=== PATIENT | male | born 1955 | race Caucasian/White ===

== ENCOUNTER 2023-07-25 18:44 | Emergency (ER) | payer OTHER, SELFPAY ==
[2023-07-25 18:47] VITALS: BP 172/76
--- NOTE | 2023-07-25 19:37 | ED.GENMED ---
History of Present Illness
General
Chief Complaint: Skin Surface Trauma
Source: patient
Exam Limitations: none
Time Seen by Provider: 07/25/23 19:15
Nursing documentation reviewed up to this point in time: agreed with
Travel History
Have you had any contact with someone who has COVID-19?: No
Do you have any symptoms of coronavirus? Fever > 100 degrees, chills, cough, shortness of breath, sore throat, loss of taste or smell, muscle aches, or headache?: No
History of Present Illness
History of Present Illness:
Patient is a 67-year-old male presents to the ED for evaluation of laceration to left index finger from hedge tremor 30 minutes prior to arrival. He is not on blood thinners. He is right-hand dominant he denies any other injuries. HE believes his
tetanus is UTD.
Review of Systems
Review of Systems
Allergies reviewed?: Yes
All Other Systems: ROS reviewed and negative except as documented in HPI and ROS
Constitutional: Reports no symptoms; Denies fever
Musculoskeletal: Reports other (left index finger laceration )
Skin: Reports other (see above )
Neurological: Reports no symptoms
Psychiatric: Reports no symptoms
Phy Exam
General Physical Exam
General Presentation: no apparent distress
General age: appears stated age
General Skin: warm and dry
General Habitus: normal
General Mental: alert
General Hydration: appears well hydrated
Neurological Exam
Neurological Exam: alert and oriented x3
Musculoskeletal Exam
Musculoskeletal Exam: other (lue with strong pulses + 2 cm laceration to distal phalynx of left index finger , partial distal lateral nail is avulsed + oozing no bony tenderness full flexion/extension )
Skin Exam
Skin Exam: normal color and warm/dry
Psychiatric Exam
Psychiatric Exam: normal mood/affect
Course
Orders/Labs/Results
Orders:
Orders
07/25/23 20:05
Cephalexin Monohydrate [Keflex] 500 mg PO NOW STA
Vital Signs
Initial and Last Documented VS:
Initial Vital Signs
Temp Pulse Resp BP Pulse Ox
98.6 F 53 20 172/76 97
07/25/23 18:47 07/25/23 18:47 07/25/23 18:47 07/25/23 18:47 07/25/23 18:47
Last Documented Vital Signs
Temp Pulse Resp BP Pulse Ox
98.6 F 53 20 172/76 97
07/25/23 18:47 07/25/23 18:47 07/25/23 18:47 07/25/23 18:47 07/25/23 18:47
Procedures
Laceration Closure
Left Distal Finger:
Status of Wound: clean
Size of Wound in cm: 2
Description of Wound Edges: sharp
Preparation: cleaned with saline
Anesthesia: 1% Lidocaine and Digital-Regional
Revision/Debridement: routine- no revision
Wound exploration: no tendon involvement
Type of Closure: single layer closure
Skin Closure Material: 5-0 nylon
Number of sutures: 4
MDM/Problems Addressed
Differential Diagnosis Includes:
Not limited to laceration
MDM/Problems Addressed:
Patient with laceration to distal index finger repaired as documented. This was from a hedge tremor. No tendon deficit full flexion extension no bony tenderness not the will DC on Keflex for 5 days prophylactically. Patient will call family
doctor to ensure tetanus is up-to-date and if not we will follow-up with family doctor for administration of tetanus. Wound care reviewed.
*Critical Care Note
Total Time (30-74mins, 75-104mins- exclusive of procedures): Not Applicable
ED Attending Note
-
Portions of this chart may have been created with voice recognition software.� Occasional wrong word or��sound alike� substitutions may have occurred due to the inherent limitations of voice recognition software.
Discharge Plan
Departure
Patient Disposition: Home (Routine Discharge)
Date of Disposition: 07/25/23
Time of Disposition: 20:08
Patient with high blood pressure during this ER visit?: Yes
Covid-19: Not Applicable
Discharge Problem:
Finger laceration
Instructions: Laceration Repair With Stitches (DC), BLOOD PRESSURE
Prescriptions:
New
cephalexin 500 mg capsule
500 mg PO Q6H Qty: 20 0RF
Referrals:
Surya Mei PA-C [Family Provider] -
Activity Restrictions/Additional Instructions:
Keep wound clean and dry for 24 hours after 24 hours wash twice a day with soap and water pat dry apply small layer of antibiotic ointment to the area. See family doctor 2 days for wound check as needed and sutures are to be removed in 10 to 12
days. Antibiotic as discussed for the next 5 days.this was sent to your pharmacy. Take as directed. Return if any signs of infection.
Interventions
Interventions:
*Risk Screen - Suicide Last Done: 07/25/23 18:47
*General Assessment Last Done: 07/25/23 18:47
*Neglect/Abuse Screening Last Done: 07/25/23 18:47
ED- Fall Risk Assessment Last Done: 07/25/23 18:47
*ED COVID-19 Vaccine History Last Done: 07/25/23 18:47
ED-Skin Assessment Last Done: 07/25/23 19:19
Discharge Date and Time
Print Language: DANISH
[2023-07-25 20:08] VITALS: BMI 28.8
[2023-07-25] MEDS: KEFLEX 500 MG PO (20:31)
== END 2023-07-25 20:37 | disposition home or self-care (01) ==
LOC: EMR 18:44
PROVIDERS: EMERGENCY PHYSICIAN Emergency Medicine; FAMILY PHYSICIAN Physician Assistant Medical
DX: S61.211A Laceration without foreign body of left index finger without damage to nail, initial encounter (principal); W29.3XXA Contact with powered garden and outdoor hand tools and machinery, initial encounter; R03.0 Elevated blood-pressure reading, without diagnosis of hypertension
CPT/HCPCS: 99283; 12001

== ENCOUNTER 2024-04-21 22:18 | Inpatient (IN) | payer OTHER, SELFPAY ==
[2024-04-21 13:32] VITALS: BP 158/104
[2024-04-21 13:44] LABS: % Basophils 0.2 % (0-2); % Eosinophils 0.9 % (0-6); % Immature Granulocytes 0.4 % (0-0.5); % Lymphocytes 11.6 % (20.5-51.1); % Monocytes 8.9 % (1.7-9.3); Absolute Eosinophils 0.1 10^3/uL (0-0.7); Absolute Immature Granulocytes 0.1 10^3/uL (0-0.05); Absolute Lymphocytes 1.9 10^3/uL (1.2-3.4); Absolute Monocytes 1.4 10^3/uL (0.1-0.6); Absolute Neutrophils 12.6 10^3/uL (1.4-6.5); Hematocrit 47.5 % (39.0-52.0); Mean Corp Hgb Conc. 35.8 g/dL (33.0-37.0); Mean Corpuscular Hgb 32.2 pg (27.0-31.0); Mean Platelet Volume 8.6 fL (7.4-10.4); Nucleated Red Blood Cells % 0 % (-); Platelet Count 215 10^3/uL (130-400); Red Blood Cell Count 5.28 10^6/uL (4.70-6.10); Red Cell Dist. Width 12.5 % (11.5-14.5); White Blood Cell Count 16.2 10^3/uL (4.8-10.8)
[2024-04-21 14:16] LABS: ALT (SGPT) 13 U/L (0-50); AST (SGOT) 16 U/L (17-59); Alkaline Phosphatase 74 U/L (38-126); Blood Urea Nitrogen 16 mg/dl (9-20); Calcium 9.9 mg/dl (8.4-10.2); Carbon Dioxide 25 mmol/L (22-30); Chloride 100 mmol/L (98-107); Glucose 112 mg/dl (70-99); Lipase 1386 U/L (23-300); Potassium 4.4 mmol/L (3.5-5.1); Sodium 133 mmol/L (135-145); Total Bilirubin 1.1 mg/dl (0.2-1.3); Total Protein 7.3 g/dl (6.3-8.2); eGFR > 60.00
[2024-04-21] MEDS: LR 1000 IV (14:39)
--- NOTE | 2024-04-21 14:48 | ED.GENMED ---
History of Present Illness
General
Chief Complaint: Abdominal Pain
Source: patient and spouse
Exam Limitations: none
Time Seen by Provider: 04/21/24 14:23
Nursing documentation reviewed up to this point in time: agreed with
History of Present Illness
History of Present Illness:
Patient presents ED secondary to persistent abdominal pain over the past 3 days. Abdominal pain described as diffuse, crampy, without any alleviating or exacerbate factors. Patient also reports feeling tired with decreased appetite since onset of
pain. Denies nausea, vomiting, or diarrhea. Denies recent change in medications or diet. Denies recent travel. Denies sick contact. Denies previous history of similar symptoms. Patient does report smoking, and drinking alcohol on social
occasions. Denies previous history of similar symptoms. Patient has had colonoscopy, most recently 3 years ago, without any significant findings.
Review of Systems
Review of Systems
Allergies reviewed?: Yes
All Other Systems: ROS reviewed and negative except as documented in HPI and ROS
Constitutional: Reports no symptoms; Denies fever
Respiratory: Reports no symptoms
Cardiac: Reports no symptoms
ABD/GI: Reports abdominal pain; Denies vomiting or diarrhea
Musculoskeletal: Reports no symptoms
Skin: Reports no symptoms
Neurological: Reports no symptoms
Phy Exam
Physical Exam
Physical Exam:
Physical Exam
General: no apparent distress, not acutely ill. afebrile
Head: nc/at. eomi
Neck: supple. normal range of motion.
Heart: s1/s2 regular rate and rhythm, no murmur.
Lungs: no acute respiratory distress. clear bilaterally
Abdomen: normal bowel sounds. mild RUQ tenderness to palpation. no distention
Neuro: alert and oriented. no focal neurological deficits
Skin: no rash
Psychiatric: well kept. interactive and cooperative
Extremities: no edema. no calf tenderness.
Course
Orders/Labs/Results
Orders:
Orders
04/21/24 13:38
CMP [Comprehensive Metabolic Panel] Urgent
Complete Blood Count/With Diff Urgent
Lipase Urgent
Magnesium Urgent
Comment: ADD ON
04/21/24 14:33
US Abdomen Complete/Upper Urgent
Comment:
Reason For Exam: RUQ pain
04/21/24 14:34
Add On- LAB Urgent
Tests Added?: magnesium
Lactated Ringers [Lr] 1,000 ml IV BOLUS
04/21/24 16:07
Iohexol [Omnipaque] See Protocol PO NOW STA
04/21/24 16:08
CT Abd/pel W Iv And Oral Contr Urgent
Comment:
Reason For Exam: abdominal pain w elevated lipase
04/21/24 21:15
Lactated Ringers [Lr] 500 ml IV 100 mls/hr
04/21/24 21:48
Admit/Transfer Patient As Directed
Co-Sign Provider:
Level of Care: Inpatient admission
Assign to:: Medical/Surgical
Physician / Group: Paul Schafer
Diagnosis: Acute pancreatitis
Reason for Hospitalization: Acute pancreatitis
Expected length of stay greater than two midnights?: Yes
ELOS- Estimated Length of Stay in days: 3
I certify the patient meets the requirements for IP care: Yes
PRN Pain Medication Management As Directed
May give lesser potent ordered pain med per pt: Yes
preference::
Protocol:: Medication orders for pain may be administered in a
manner that supports deferring to patient preference
when the pt is:
- Requesting an ordered lesser potent pain medication.
Least to most potent pain medications are defined
as: acetaminophen < NSAID < tramadol < opioids
(morphine, oxycodone, hydromorphone).
- Requesting a lesser dose of the same medication IF
ORDERED.
- Requesting a less intrusive route of administration
if both routes are prescribed by the provider (PO <
IV).
04/21/24 21:49
Code Status As Directed
Resuscitation Status: Full Code
04/21/24 21:56
EKG [Electrocardiogram (*1)] Stat
Reason for Study: Abdominal Pain
Abnormal Lab Results
04/21/24
13:38
WBC 16.2 H 10^3/uL
(4.8-10.8)
MCH 32.2 H pg
(27.0-31.0)
Abs Immat Gran (auto) 0.1 H 10^3/uL
(0-0.05)
Absolute Neuts (auto) 12.6 H 10^3/uL
(1.4-6.5)
Absolute Monos (auto) 1.4 H 10^3/uL
(0.1-0.6)
Neutrophils % 78.0 H %
(42.2-75.2)
Lymphocytes % 11.6 L %
(20.5-51.1)
Sodium 133 L mmol/L
(135-145)
Glucose 112 H mg/dl
(70-99)
AST 16 L U/L
(17-59)
Lipase 1386 H* U/L
(23-300)
04/21/24 13:38
04/21/24 13:38
Vital Signs
Initial and Last Documented VS:
Initial Vital Signs
Temp Pulse Resp BP Pulse Ox
98.4 F 70 18 158/104 96
04/21/24 13:32 04/21/24 13:32 04/21/24 13:32 04/21/24 13:32 04/21/24 13:32
Last Documented Vital Signs
Temp Pulse Resp BP Pulse Ox
98.4 F 63 18 168/74 93
04/21/24 13:32 04/21/24 20:00 04/21/24 20:00 04/21/24 20:00 04/21/24 20:00
MDM/Problems Addressed
MDM/Problems Addressed:
History, exam, blood work, along with CT abdomen/pelvis consistent with acute pancreatitis. Discussed with on-call GI, . Patient will be admitted for continued IV hydration via lactated ringer.
*Critical Care Note
Total Time (30-74mins, 75-104mins- exclusive of procedures): Not Applicable
ED Attending Note
-
Portions of this chart may have been created with voice recognition software.� Occasional wrong word or��sound alike� substitutions may have occurred due to the inherent limitations of voice recognition software.
Discharge Plan
Departure
Patient Disposition: Admit
Date of Disposition: 04/21/24
Time of Disposition: 21:04
Admit to: Med/Surg
Presentation/result/management discussed w/ accepting MD/DO: Hospitalist
Discharge Problem:
Pancreatitis
Interventions
Interventions:
*Risk Screen - Suicide Last Done: 04/21/24 13:32
*General Assessment Last Done: 04/21/24 13:32
*Neglect/Abuse Screening Last Done: 04/21/24 18:00
[facility] Assessment Last Done: 04/21/24 16:42
[2024-04-21] MEDS: OMNIPAQUE 50 ML PO (16:12)
[2024-04-21 19:00] VITALS: BP 174/74
[2024-04-21 20:00] VITALS: BP 168/74
--- NOTE | 2024-04-21 21:19 | HPS.HSE ---
Addendum entered and electronically signed by Paul Schafer DO 04/21/24 22:28:
Patient seen and examined independently. Agree with findings and plan as set forth by DON Holcomb.
Patient is a 68y M with PMH significant for hypertension and dyslipidemia who presents to ED complaining of several days of abdominal pain. Patient reports pain x 3 days. It was quite severe yesterday. he has been staying in bed mostly and has
not eaten / drank much. No N/V. No fevers / chills. No prior history of similar symptoms. No significant alcohol use.
Ass:
Acute Pancreatitis
Leukocytosis - Likely reactive
Benign Hypertension
Dyslipidemia
Plan:
Admit for further evaluation and treatment.
Mild symptoms and likely partially treated by his own limited PO intake x several days.
NPO, IVFs, pain control, etc.
Imaging in the ED with evidence of pancreatic inflammation, but no gallstones, etc.
GI evaluation for additional recommendations.
Follow for clinical improvement.
Original Note:
Family Physician
-
Family Physician: Mundo Foster
Chief Complaint
-
abdominal pain
History of Present Illness
Patient is a 68-year-old male with past medical history significant for benign hypertension and hyperlipidemia who presented to [facility] ED for evaluation of abdominal pain for the past 3 days. Patient reports he had intermittent diffuse
abdominal on Monday afternoon and evening, Monday pain was consistent and he slept most of the day and continued into today without relief. Patient reports pain was diffuse, crampy and denies any alleviating or exacerbating factors. Associated
anorexia since symptom onset. Patient denies any fevers, chills, nausea, vomiting or diarrhea.
Medical History
Past Medical History
Past Medical History: Reports Other
Additional Past Medical History:
benign hypertension
hyperlipidemia
Hx [place]
Past Surgical History: Reports Other
Additional Past Surgical History:
broken ankle repair (left)
cardiac cath
Social History
Tobacco: Smoker (0.5packs per day for 50 years, 25 pack year history )
Alcohol: Occasional
Drug: None
Personal:
Living: With Family
Employment: Retired
Family History
Family History: Not pertinent
Allergies / Home Medications
Allergies reflects when Allergies were last updated in [employer]
Home Medications with original date entered in [employer]
Allergy/Medication List:
Allergies
Allergy/AdvReac Type Severity Reaction Status Date / Time
No Known Allergies Allergy Verified 04/21/24 13:35
Home Medications
amlodipine 5 mg tablet 5 mg PO HS 04/21/24
aspirin 81 mg tablet,delayed release 81 mg PO HS 04/21/24
cyanocobalamin (vitamin B-12) 1,000 mcg tablet 1,000 mcg PO HS 04/21/24
lisinopril 10 mg tablet 20 mg PO HS 04/21/24
nebivolol 10 mg tablet 10 mg PO HS 04/21/24
niacin 500 mg tablet,extended release 500 mg PO HS 04/21/24
simvastatin 40 mg tablet 40 mg PO HS 04/21/24
Review of Systems
-
History Source: Patient
Constitutional: Reports No Symptoms
EENT: Reports No Symptoms
Respiratory: Reports No Symptoms
Cardiac: Reports No Symptoms
Abdomen/GI: Reports Abdominal Pain and Anorexia
: Reports No Symptoms
Musculoskeletal: Reports No Symptoms
Skin: Reports No Symptoms
Neurological: Reports No Symptoms
Endocrine: Reports No Symptoms
Hematologic/Lymphatic: Reports No Symptoms
Psych: Reports No Symptoms
Physical Exam
Vital Signs
Vital Signs
Temp Pulse Resp BP Pulse Ox
98.4 F 63 18 168/74 93
04/21/24 13:32 04/21/24 20:00 04/21/24 20:00 04/21/24 20:00 04/21/24 20:00
Physical Exam
General: Well Developed, Well Nourished, No Apparent Distress, Comfortable, Conversant and Obese
HEENT: NormoCephalic, Moist mucous membranes, Atraumatic, [place] Conjunctivae, Nose Appears Normal and Ears Appear Normal
Respiratory: Clear and Non Labored Respirations; No Wheezes, Rales, Rhonchi or Crackles
Cardiac: S1/S2 and Regular Rhythm; No Murmur, Rub or Gallop
Breast: Deferred by me
GI: Soft, Non Tender, Non Distended and Normal Bowel Sounds (hypoactive ); No Organomegaly
Rectal: Deferred by Provider
Genito-urinary: Deferred by me
Musculoskeletal: No Clubbing, No Cyanosis and No Edema
Skin: Warm and IV/Catheter Site; No Rash
Neuro: Awake, Alert, AO x 3 and Nonfocal/grossly intact
Psych: Calm and Intact Judgment/Insight
Laboratory Results
-
04/21/24 13:38
04/21/24 13:38
Laboratory Results
Total Bilirubin 1.1 mg/dl (0.2-1.3) 04/21/24 13:38
AST 16 U/L (17-59) L 04/21/24 13:38
ALT 13 U/L (0-50) 04/21/24 13:38
Alkaline Phosphatase 74 U/L (38-126) 04/21/24 13:38
Lipase 1386 U/L (23-300) H* 04/21/24 13:38
Data Reviewed
-
CT Scan: Report Reviewed by me (Abd/Pel: Acute uncomplicated interstitial edematous pancreatitis.)
Ultrasound: Report Reviewed by me (Abd: Unremarkable abdominal ultrasound, as detailed above. )
Lab Data: Labs Reviewed by me (WBC 16.2, Neut 78.0, Lipase 1386)
Impression/Plan
-
IMPRESSION/PLAN:
#Acute pancreatitis
WBC 16.2, Neut 78.0, Lipase 1386
Abd US: Unremarkable abdominal ultrasound, as detailed above.
Abd/Pel CT: Acute uncomplicated interstitial edematous pancreatitis.
- Admit to med/surg
- Consult GI
- IVF
#benign hypertension
- continue amlodipine, lisinopril and nebivolol
#hyperlipidemia
- continue niacin and simvastatin
#nicotine dependency
25 pack year history
- encourage cessation
Code status: full code
DVT prophylaxis: Lovenox Sq
[2024-04-21] MEDS: LR 500 IV (21:59)
[2024-04-21 23:27] VITALS: BMI 27.4
[2024-04-21 23:30] VITALS: BP 170/81
--- NOTE | 2024-04-21 23:49 | PTCARENOTE ---
6373- Received patient from ED via stretcher; Medsurg order. Afebrile, HR 68, RR 18, BP 170/81, pox 97% room air. Pain controlled. Pt ambulated w/o issues. IVF- LR@ 100ml/hr infusing through #20RFA IV. PMH and medications reviewed by this RN and
patient. Plan of care discussed. Patient oriented to room. Call gan within reach.
[2024-04-21] MEDS: ASPIR LOW (ENTERIC COATED) 81 MG PO (23:56)
[2024-04-21] MEDS: ZESTRIL 20 MG PO (23:56)
[2024-04-21] MEDS: VITAMIN B-12 1000 MCG PO (23:57)
[2024-04-21] MEDS: BYSTOLIC 10 MG PO (23:58)
[2024-04-22 01:16] VITALS: BP 164/71
[2024-04-22] MEDS: LR IV ×3 (03:59→12:25)
[2024-04-22] MEDS: LR 1000 IV ×2 (04:05→15:24)
--- NOTE | 2024-04-22 08:02 | W.PN.HOSP.TC ---
Today's Communication/Plan
-
Discharge today
Assessment / Plan
Assessment / Plan
Physical Exam
General: Not in acute distress
HEENT: Normocephalic, Moist mucous membranes, Atraumatic
Respiratory: Clear to Auscultation Bilaterally
Cardiac: S1/S2 and Regular Rate and Rhythm
GI: Soft, Minimally Tender, Non Distended and Normal Bowel Sounds
Musculoskeletal: No Cyanosis and No Edema
Skin: Warm. Dry.
Neuro: Awake, Alert, AO x 3 and Nonfocal/grossly intact
Psych: Calm and Intact Judgment/Insight
Assessment/Plan
68-year-old male with past medical history significant for benign hypertension and hyperlipidemia who presented to [facility] ED for evaluation of abdominal pain for about 3 days prior to arrival. Patient reports he had intermittent diffuse
abdominal on Monday afternoon and evening, Monday pain was consistent and he slept most of the day and continued into today without relief. Patient reports pain was diffuse, crampy and denies any alleviating or exacerbating factors. Associated
anorexia since symptom onset. Patient denies any fevers, chills, nausea, vomiting or diarrhea. No significant alcohol use.
#Acute pancreatitis -- improving may be from alcohol vs. med (recent increase in Lisinopril outpatient)
WBC 16.2, Neut 78.0, Lipase 1386
Abd US: Unremarkable abdominal ultrasound, as detailed above.
Abd/Pel CT: Acute uncomplicated interstitial edematous pancreatitis.
- Triglycerides okay
- Appreciate GI evaluation and recommendations
- Consider changing ACEI if pancreatitis recurs or doesn't further resolve
- I communicated with chief librarian branch Dr. Mendez today, and from her standpoint, okay to discharge patient today
RBBB
History of NSTEMI 05/2010 and cardiac cath at that time showed nonobstructive CAD
-Patient son Rogerio Biswas (work in cardiology research/cardiology nurse) requested cardiology consult and further evaluation; he reported that the RBBB is new, but after further research, it appears RBBB is now new. Appreciate cardiology.
-Echo today was unremarkable with preserved EF
-Follow-up with outpatient body line finisher
#Leukocytosis - Likely reactive
#benign hypertension
- continue amlodipine, lisinopril and nebivolol
#hyperlipidemia
- continue niacin and simvastatin
#nicotine dependency
25 pack year history
- encourage cessation
Code status: full code
DVT prophylaxis: Lovenox Sq
More than 30 minutes spent in discharge including
Final examination of the patient
Summarizing hospital stay
Instructions for continuing care to all relevant caregivers
Preparation of discharge records, prescriptions, and referral forms
Total time spent (in minutes): 38
Anticipated Discharge: Today
Subjective/Interval History
-
Date of Service: April 22, 2024
Patient was seen and examined. He reported feeling better, abdominal pain is much better per him. He denied any chest pain, dizziness or shortness of breath.
Objective Data
-
Labs:
Laboratory Results
04/22/24
07:33
WBC Pending
Hgb Pending
Hct Pending
Plt Count Pending
Sodium Pending
Potassium Pending
Chloride Pending
Carbon Dioxide Pending
BUN Pending
Creatinine Pending
Glucose Pending
Calcium Pending
Total Bilirubin Pending
AST Pending
ALT Pending
Alkaline Phosphatase Pending
Vital Signs:
Vital Signs
Temp Pulse Resp BP Pulse Ox
97.8 F 65 18 164/71 97
04/22/24 01:16 04/22/24 01:16 04/22/24 01:16 04/22/24 01:16 04/22/24 01:16
I&O
04/21/24 04/22/24 04/23/24
06:59 06:59 06:59
Intake Total 900 / 900
Balance 900 / 900
[2024-04-22 08:03] VITALS: BP 156/72
[2024-04-22 08:27] LABS: Hematocrit 45.3 % (39.0-52.0); Hemoglobin 15.9 g/dL (13.0-18.0); Mean Corp Hgb Conc. 35.1 g/dL (33.0-37.0); Mean Corpuscular Volume 91.1 fL (80.0-94.0); Mean Platelet Volume 9.1 fL (7.4-10.4); Platelet Count 234 10^3/uL (130-400); Red Blood Cell Count 4.97 10^6/uL (4.70-6.10); Red Cell Dist. Width 12.6 % (11.5-14.5); White Blood Cell Count 14.9 10^3/uL (4.8-10.8)
[2024-04-22 08:50] LABS: ALT (SGPT) 11 U/L (0-50); AST (SGOT) 16 U/L (17-59); Albumin 3.5 g/dl (3.5-5.0); Alkaline Phosphatase 81 U/L (38-126); Blood Urea Nitrogen 14 mg/dl (9-20); Calcium 9.5 mg/dl (8.4-10.2); Carbon Dioxide 23 mmol/L (22-30); Chloride 102 mmol/L (98-107); Estimated Creatinine Clearance 116 ml/min; Glucose 70 mg/dl (70-99); HDL Cholesterol 44 mg/dl; LDL Cholesterol, Calculated 51 mg/dl; Lipase 785 U/L (23-300); Potassium 4.3 mmol/L (3.5-5.1); Sodium 132 mmol/L (135-145); Total Bilirubin 1.1 mg/dl (0.2-1.3); Total Cholesterol 107 mg/dl (50-199); Total Protein 6.6 g/dl (6.3-8.2); Triglyceride 61 mg/dl (10-149); Triglycerides 61 mg/dl (10-149); Very Low Density Lipoprotein 12 mg/dl (0-30); eGFR > 60.00
--- NOTE | 2024-04-22 11:04 | CM ---
Patient seen at bedside. Patient states that he lives with his and family in a split level home. Patient stated that he uses the [facility] and his PCP is Dr. sonam Lancaster. Patient uses the [facility] in [place]. Patient is
independent of all adl's and IADL's. Patient plan is home with no needs when medically appropriate. CM will continue to follow for discharge planning needs.
Plan; discharge with no needs.
--- NOTE | 2024-04-22 13:07 | CON.GI ---
Addendum entered and electronically signed by Jhon Mendez MD 04/22/24 15:12:
I personally performed a history and physical exam of the patient and discussed management with the resident. I reviewed the resident's note and agree with the documented findings and plan of care HPI/CC.
Pt is A 68-year-old man with a history of hyperlipidemia and [place] back a decade ago who states that he was away at [place] last week and started developing severe abdominal pain. He states it was worse on Monday and then started leading up on
Monday. He came home and then decided since it had not resolved to come to the emergency room on Monday. In the emergency room he had an elevated lipase and white blood count. He did have some mild pain but not as severe as initially. He
denies having abnormal triglycerides. He does drink alcohol socially but states he did not drink prior to admission. He did have a CAT scan and ultrasound which were essentially unremarkable. This morning he feels better. he did recently
increase his ACEI dose 3 weeks ago. No other new meds
abd: soft, mild tenderness
lipase with further decrease to 785
impression:
pancreatitis improving may be based on alcohol vs. med (increase in ACEI)
plan:
check triglycerides, IGG4
alcohol abstinence
consider changing ACEI if pancreatitis recurs or doesn't further resolve
clear liquids and advance as tolerated
Original Note:
Consultation
-
Date/Time Consultation Requested: 04/21/24
Date/Time Consultation Performed: 04/22/24
Requesting Provider: Marbella OCHOA
Performing Provider: , Richie Álvarez
Reason for Consultation: Adominal Pain- Acute Pancreatitis
Medical History
Chief Complaint / HPI
Chief Complaint: Abdomina Pain
History of Present Illness:
This is a 68 year old male patient with PMH of HTN and hyperlipidemia who presented to for concerns of abdominal pain. He states that he recently gone to the beach this past weekend and had abdominal pain starting on Monday night. He describes
the pain as continuous, non radiating and generalized. He continued to have pain into Monday. The pain mildly decreased by Monday morning when he was able to drive himself back home. He denies any fever,chills,nausea or vomiting. He had normal
bowel movements up until Monday when his pain started and he was unable to eat much.
He has never had abdominal pain episodes like this before and never has experienced gallstones. He states he is a social drinker and drinks about 1-2 drinks a week.
Past Medical History
Past Medical History: HTN, Hypercholesterolemia and [place] (hx of [place])
Past Surgical History: Other (broken ankle repair (left), cardiac cath)
Social History
Tobacco: Smoker
Alcohol: Occasional (1-2 drinks a week)
Drug: None
Personal:
Living: With Family
Family History
Family History: Reviewed & Not Pertinent
Allergies / Home Medications
Allergy/AdvReac Type Severity Reaction Status Date / Time
No Known Allergies Allergy Verified 04/21/24 13:35
�Medication �Instructions �Recorded
amlodipine 5 mg tablet 5 mg PO HS 04/21/24
aspirin 81 mg tablet,delayed 81 mg PO HS 04/21/24
release
cyanocobalamin (vitamin B-12) 1,000 mcg PO HS 04/21/24
1,000 mcg tablet
lisinopril 10 mg tablet 20 mg PO HS 04/21/24
nebivolol 10 mg tablet 10 mg PO HS 04/21/24
niacin 500 mg tablet,extended 500 mg PO HS 04/21/24
release
simvastatin 40 mg tablet 40 mg PO HS 04/21/24
Review of Systems
-
All other systems: A 12 pt ROS was Negative except as stated above in HPI
Vital Signs
Temp Pulse Resp BP Pulse Ox
99.5 F 68 18 156/72 94
04/22/24 08:03 04/22/24 08:03 04/22/24 08:03 04/22/24 08:03 04/22/24 08:03
Physical Exam
Exam
General: No Apparent Distress
HEENT: Normocephalic and Moist Mucous Membranes
Respiratory: Clear
Cardiac: S1/S2 and Regular Rhythm
GI: Soft, Non Tender and Non Distended
Musculoskeletal: No Cyanosis and No Edema
Skin: Warm and Dry
Neuro: Nonfocal/Grossly Intact
Results
WBC 14.9 10^3/uL (4.8-10.8) H 04/22/24 07:33
Hgb 15.9 g/dL (13.0-18.0) 04/22/24 07:33
Hct 45.3 % (39.0-52.0) 04/22/24 07:33
MCV 91.1 fL (80.0-94.0) 04/22/24 07:33
Plt Count 234 10^3/uL (130-400) 04/22/24 07:33
Absolute Neuts (auto) 12.6 10^3/uL (1.4-6.5) H 04/21/24 13:38
Sodium 132 mmol/L (135-145) L 04/22/24 07:33
Potassium 4.3 mmol/L (3.5-5.1) 04/22/24 07:33
Chloride 102 mmol/L (98-107) 04/22/24 07:33
Carbon Dioxide 23 mmol/L (22-30) 04/22/24 07:33
BUN 14 mg/dl (9-20) 04/22/24 07:33
Creatinine 0.7 mg/dL (0.7-1.3) 04/22/24 07:33
Calcium 9.5 mg/dl (8.4-10.2) 04/22/24 07:33
Total Bilirubin 1.1 mg/dl (0.2-1.3) 04/22/24 07:33
AST 16 U/L (17-59) L 04/22/24 07:33
ALT 11 U/L (0-50) 04/22/24 07:33
Alkaline Phosphatase 81 U/L (38-126) 04/22/24 07:33
Lipase 785 U/L (23-300) H 04/22/24 07:33
Diagnostic Image Results:
Abd/pelvic CT with oral and IV contrast 04/21/24: Acute uncomplicated interstitial edematous pancreatitis.
Prior GI Procedures:
EGD: n/a
Colonoscopy: n/a
Assessment / Plan
-
This is a 68 year old male patient with PMH of HTN and hyperlipidemia who presented to for concerns of abdominal pain. He states that he recently gone to the beach this past weekend and had abdominal pain starting on Monday night. He describes
the pain as continuous, non radiating and generalized. He continued to have pain into Monday. The pain mildly decreased by Monday morning when he was able to drive himself back home. He denies any fever,chills,nausea or vomiting. He had normal
bowel movements up until Monday when his pain started and he was unable to eat much.
He has never had abdominal pain episodes like this before and never has experienced gallstones. He states he is a social drinker and drinks about 1-2 drinks a week.
Impression/Assessment:
Acute Pancreatitis
HTN
Hyperlipidemia
Plan:
-Patient was changed to clear liquid diet today
-Lipase downtrending to 785, initially 1386 yesterday
-Add on lipid panel for possible hypertriglyceridemia
-
-
Thank you for consultation and allowing me to participate in the patient's care. Please call the communication coordinator GI physician during the after hours with any questions or concerns.
--- NOTE | 2024-04-22 14:42 | CON.CAR ---
Addendum entered and electronically signed by Nereyda Allen PA-C 04/23/24 08:14:
Patient with h/o bifascicular block which in his case are a combination of RBBB and LAFB. RBBB seen on ECG this admission.
Addendum entered and electronically signed by Moy Murrell DO 04/22/24 16:29:
I saw and examined the patient.
The Rag Sorter's note was reviewed and I agree with the note.
Comment:
Plan:
Consulted for RBBB, not new as per records
Recent PET stress with normal perfusion Nov 2023.
Echo today was unremarkable with preserved EF.
Pt to follow up with his outside television installer helper, Dr Rogers [facility]
Findings reviewed with family.
Please recall if needed.
Original Note:
Consultation
Consultation Request
Date/Time Consultation Requested: 04/22/24
Date/Time Consultation Performed: 04/22/24
Requesting Provider: Dr. Kim
Performing Provider: Dr. Murrell
Reason for Consultation: Posisble new RBBB
Medical History
-
History of Present Illness:
Patient came to ER yesterday with complaints of abdominal pain for 3 days was admitted with pancreatitis, cardiology is now consulted for a new RBBB that the family is concerned may be a sign of a change in known CAD. Patient follows with "Jony"Sue for cardiology at [facility] and previously had an NSTEMI 05/2010 and cardiac cath at that time showed nonobstructive CAD and no intervention was performed, details above. Since then patient has continued to follow-up with Dr. Rogers in the
office and most recently had a cardiac PET test on 11/27/2023 that showed normal perfusion and no evidence of prior infarction. Patient had 3 days worth of abdominal pain and came to ER that is now admitted with pancreatitis. On ECG there was
RBBB and the patient's family, including his son who is a rn cardiac cath, is concerned but this may be new because in the patient's portal he lists his ECG is being normal. No complaints of chest pain.
PMH:
cRBBB
LAFB
Sinus bradycardia
CAD
h/o NSTEMI, managed medically 05/2010
LM normal, 60% mid LAD, normal Circ, 30% prox RCA by cardiac cath 05/2010
HTN
LV enlarged by cardiac PET at [facility] 11/27/2023
Past Medical History
Past Medical History: Other (in HPI)
Past Surgical History: Orthopedic
Social History
Tobacco: Former Smoker (quit in 2010)
Alcohol: Occasional
Drug: None
Personal:
Living: With Family
Family History
Family History: CAD and Hypertension
Allergies / Home Medications
Allergy/AdvReac Type Severity Reaction Status Date / Time
No Known Allergies Allergy Verified 04/21/24 13:35
�Medication �Instructions �Recorded �Confirmed �Type
amlodipine 5 mg tablet 5 mg PO HS 04/21/24 04/21/24 History
aspirin 81 mg tablet,delayed 81 mg PO HS 04/21/24 04/21/24 History
release
cyanocobalamin (vitamin B-12) 1,000 mcg PO HS 04/21/24 04/21/24 History
1,000 mcg tablet
lisinopril 10 mg tablet 20 mg PO HS 04/21/24 04/21/24 History
nebivolol 10 mg tablet 10 mg PO HS 04/21/24 04/21/24 History
niacin 500 mg tablet,extended 500 mg PO HS 04/21/24 04/21/24 History
release
simvastatin 40 mg tablet 40 mg PO HS 04/21/24 04/21/24 History
Review of Systems
-
History Source: Patient and Family ( bedside who also called son, Rogerio, and we talked all together using speakerphone)
All other systems: Negative unless noted
Physical Exam
Vital Signs
Temp Pulse Resp BP Pulse Ox
99.5 F 68 18 156/72 94
04/22/24 08:03 04/22/24 08:03 04/22/24 08:03 04/22/24 08:03 04/22/24 08:03
GEN: NAD. AAOx3
HEENT: EOMI, MMM
LUNGS: RA. No audible wheeze
CV: ECG with NSR and RBBB. Reg, S1/S2, no murmur
ABD: soft, BS+, NT, ND
EXT: No clubbing, cyanosis, lesions or edema B/L
NEURO: Gross non-focal
SKIN: Warm, dry and pink. No rash
Lab Results
04/22/24 07:33
04/22/24 07:33
Impression / Plan
-
PCP: Em Singh NP
Card: Dr. Rogers at [facility] [phone]
Impression:
Admitted with abdominal pain and pancreatitis 04/21/24
Acute pancreatitis
cRBBB
LAFB
Sinus bradycardia
CAD
h/o NSTEMI, managed medically 05/2010
LM normal, 60% mid LAD, normal Circ, 30% prox RCA by cardiac cath 05/2010
HTN
LV enlarged by cardiac PET at [facility] 11/27/2023, seen again on echo at 04/22/2024
Echo 05/2010: AMS study, EF 60 to 65%
Echo 04/22/2024: LV is mildly dilated, normal wall thickness and systolic function with EF 65 to 70%, no WMA, no significant valve disease
Cardiac perfusion PET stress test 11/27/2023: AMS study, normal perfusion, no scintigraphic evidence of reversible ischemia or prior infarction, LV function normal, LV size enlarged, resting ECG with RBBB and LAFB
Plan:
-Patient came to ER yesterday with complaints of abdominal pain for 3 days was admitted with pancreatitis, cardiology is now consulted for a new RBBB that the family is concerned may be a sign of a change in known CAD. Patient follows with "Jony"Sue for cardiology at [facility] and previously had an NSTEMI 05/2010 and cardiac cath at that time showed nonobstructive CAD and no intervention was performed, details above. Since then patient has continued to follow-up with Dr. Rogers in the
office and most recently had a cardiac PET test on 11/27/2023 that showed normal perfusion and no evidence of prior infarction. Patient had 3 days worth of abdominal pain and came to ER that is now admitted with pancreatitis. On ECG there was
RBBB and the patient's family, including his son who is a rn cardiac cath, is concerned but this may be new because in the patient's portal he lists his ECG is being normal. No complaints of chest pain.
-ECG reviewed by me shows SR and RBBB.
-Called patient's primary television installer helper to obtain records. Patient prefers to be hospitalized at because his daughter works here and will continue to see his [facility] providers as an outpatient.
-Reviewed records I retrieved from [facility] and patient has a chronic RBBB and LAFB. Talked with patient's in the room and she was able to call their son who is a rn cardiac cath and we reviewed the records and current findings. Family is reassured that
ECG changes are chronic and will follow up with primary television installer helper.
-Echo showed LV mildly dilated which is similar to cardiac PET study from [facility] 11/27/23.
-Family asking for a Troponin level, no chest pain. Will check at their request.
[2024-04-22 16:00] VITALS: BP 163/73
[2024-04-22 17:29] LABS: Troponin I < 0.012 ng/ml
[2024-04-22] MEDS: LOVENOX 40 MG SC (17:55)
--- NOTE | 2024-04-23 07:56 | PN.CDI ---
CDI
- -
CDI:
Physician Documentation Request
Admit Date: 04/21/24 22:18
Dear Cardiology,
Please review the following and provide your response in the progress notes.
Clinical Indicators:
- Patient admit for acute pancreatitis
- 04/22 Cardiology note 'Cardiac perfusion PET stress test 11/27/2023:...resting ECG with RBBB and LAFB'
- 04/21 EKG with RBBB
Please clarify the diagnosis with the above findings
Bifascicular block
RBBB and history of LAFB
Other (please specify)
Use of terms such as suspected, likely, concern for, or probable (associated with a specific diagnosis that is being evaluated, monitored, or treated as if it exists) are acceptable and can be coded in the inpatient setting, when documented at the
time of discharge.
Thank you,
Ayleen Vance RN
CDI Specialist
Please use your independent medical judgment in providing your response.
== END 2024-04-22 18:43 | disposition home or self-care (01) | DRG 439 ==
LOC: 1 ACUTE 22:18
PROVIDERS: Emergency Medicine; Nurse Practitioner Family; Physician Assistant Medical; ADMITTING PHYSICIAN Hospitalist; ATTENDING PHYSICIAN Hospitalist; CONSULT PHYSICIAN Internal Medicine; CONSULT PHYSICIAN Nuclear Medicine Nuclear Cardiology; EMERGENCY PHYSICIAN Emergency Medicine; FAMILY PHYSICIAN Family Medicine
DX: K85.90 Acute pancreatitis without necrosis or infection, unspecified (principal); I45.2 Bifascicular block; R53.83 Other fatigue; F17.200 Nicotine dependence, unspecified, uncomplicated; I10 Essential (primary) hypertension; E78.00 Pure hypercholesterolemia, unspecified; R60.9 Edema, unspecified; I25.10 Atherosclerotic heart disease of native coronary artery without angina pectoris; R63.0 Anorexia; I25.2 Old myocardial infarction; Z79.82 Long term (current) use of aspirin
CPT/HCPCS: 74177; 76700; 80053; 80061; 83690; 83735; 84478; 84484; 85025; 85027; 93005; 93306; 96360; 99285; 99406; Q9967